=== PATIENT | male | born 1985 | race Two or more races ===

== ENCOUNTER 2019-12-17 21:12 | Emergency (ER) | payer OTHER, MEDICAID ==
[~2019-12-17] VITALS: Ht 170.2 cm; Wt 77.0 kg
[2019-12-17] MEDS ORDERED: IBUPROFEN 600MG TABLET PO ONE (22:30)
[2019-12-18 09:18] LABS: BASOPHILS % 0.6 % (0.0-2.0); EOSINOPHILS % 1.4 % (0.0-5.0); HEMATOCRIT. 40.8 % (42.0-52.0); HEMOGLOBIN. 13.8 g/dL (14.0-18.0); MEAN CORPUSCULAR HEMOGLOBIN 30.6 pg (28.0-32.0); MEAN CORPUSCULAR VOLUME 90.6 fL (80.0-94.0); MEAN PLATELET VOLUME 7.9 fl (7.4-10.4); MONOCYTES % 9.6 % (2.0-8.0); NEUTROPHILS % 79.4 % (40.0-76.0); PLATELET 276 x1000/uL (130-400); RED BLOOD CELL COUNT 4.51 mill/uL (4.7-6.1); RED CELL DISTRIBUTION WIDTH 13.3 % (11.6-14.6)
[2019-12-18 09:23] LABS: CHLORIDE 105 mEq/L (98-107)
[2019-12-18 09:26] LABS: ETHANOL BLOOD < 10 mg/dL
[2019-12-18 09:35] LABS: CLARITY URINE CLEAR (CLEAR); COLOR URINE YELLOW (YELLOW); KETONES URINE NEGATIVE (NEGATIVE); LEUKOCYTE ESTERASE URINE TRACE (NEGATIVE); NITRITE URINE NEGATIVE (NEGATIVE); OCCULT BLOOD URINE NEGATIVE (NEGATIVE); PH URINE 6.5 (4.5-8.0); PROTEIN URINE NEGATIVE (NEGATIVE); SPECIFIC GRAVITY URINE 1.022 (1.005-1.030)
[2019-12-18 09:54] LABS: *AMPHETAMINES SCREEN URINE NEGATIVE (NEGATIVE); *BARBITURATES SCREEN URINE NEGATIVE (NEGATIVE); *BENZODIAZEPINES SCREEN URINE NEGATIVE (NEGATIVE); CANNABINOID URINE SCREEN NEGATIVE (NEGATIVE); PHENCYCLIDINE URINE SCREEN NEGATIVE (NEGATIVE)
[2019-12-18 09:55] LABS: *COCAINE SCREEN URINE NEGATIVE (NEGATIVE); METHADONE URINE SCREEN NEGATIVE (NEGATIVE); OPIATES URINE SCREEN NEGATIVE (NEGATIVE)
[2019-12-18 14:57] VITALS: BP 132/81
== END 2019-12-18 14:59 | disposition home or self-care (01) ==
LOC: ER 21:12
DX: F23 Brief psychotic disorder (principal); M79.18 Myalgia, other site; M25.571 Pain in right ankle and joints of right foot; Z59.0 Homelessness; Z75.1 Person awaiting admission to adequate facility elsewhere; Z87.442 Personal history of urinary calculi
CPT/HCPCS: 36415; 73610; 80048; 80305; 80307; 80320; 80329; 81003; 85025; 99285; G0480

== ENCOUNTER 2019-12-23 01:36 | Emergency (ER) | payer MEDICARE, MEDICAID ==
[~2019-12-23] VITALS: Ht 167.6 cm; Wt 85.0 kg
[2019-12-23 02:02] VITALS: BP 128/58
[2019-12-23] MEDS ORDERED: NAPROXEN 250MG TABLET PO ONE (03:15)
[2019-12-23] MEDS ORDERED: BACITRACIN ZINC OINT UDPKT TOP ONE (03:15)
[2019-12-23] MEDS ORDERED: IBUPROFEN 600MG TABLET PO ONE (03:30)
== END 2019-12-23 03:58 | disposition home or self-care (01) ==
LOC: ER 01:36
DX: S90.822A Blister (nonthermal), left foot, initial encounter (principal); S90.821A Blister (nonthermal), right foot, initial encounter; S00.91XA Abrasion of unspecified part of head, initial encounter; S80.219A Abrasion, unspecified knee, initial encounter; X58.XXXA Exposure to other specified factors, initial encounter; Y93.89 Activity, other specified; Y92.89 Other specified places as the place of occurrence of the external cause; Y99.8 Other external cause status
CPT/HCPCS: 99283

== ENCOUNTER 2020-01-11 17:08 | Emergency (ER) | payer MEDICARE, MEDICAID ==
[~2020-01-11] VITALS: Ht 165.1 cm; Wt 65.0 kg
[2020-01-11 17:25] VITALS: BP 111/47
[2020-01-11] MEDS ORDERED: ACETAMINOPHEN 325MG TABLET PO ONE (19:30)
== END 2020-01-11 20:37 | disposition left against medical advice (07) ==
LOC: ER 17:08
DX: M79.671 Pain in right foot (principal); M79.672 Pain in left foot; Z59.0 Homelessness; Z87.19 Personal history of other diseases of the digestive system
CPT/HCPCS: 99281

== ENCOUNTER 2020-01-13 04:14 | Emergency (ER) | payer MEDICARE, MEDICAID ==
[~2020-01-13] VITALS: Ht 170.2 cm; Wt 70.4 kg
[2020-01-13 04:42] VITALS: BP 145/66
== END 2020-01-13 06:47 | disposition home or self-care (01) ==
LOC: ER 04:14
DX: M79.18 Myalgia, other site (principal); I10 Essential (primary) hypertension; Z87.19 Personal history of other diseases of the digestive system
CPT/HCPCS: 99281

== ENCOUNTER 2020-08-25 04:20 | Emergency (ER) | payer MEDICARE, MEDICAID ==
[~2020-08-25] VITALS: Ht 172.7 cm; Wt 67.0 kg
[2020-08-25] MEDS ORDERED: ONDANSETRON 4MG ODT PO STA (05:36)
[2020-08-25 07:02] LABS: CHLORIDE 102 mEq/L (98-107)
[2020-08-25 07:33] LABS: BASOPHILS % 0.5 % (0.0-2.0); HEMATOCRIT. 46.4 % (42.0-52.0); HEMOGLOBIN. 15.6 g/dL (14.0-18.0); LYMPHOCYTES % 27.3 % (20.0-50.0); MEAN CORPUSCULAR HEMOGLOBIN 30.5 pg (28.0-32.0); MEAN CORPUSCULAR VOLUME 90.8 fL (80.0-94.0); NEUTROPHILS % 62.2 % (40.0-76.0); PLATELET 276 x1000/uL (130-400); RED BLOOD CELL COUNT 5.11 mill/uL (4.7-6.1); RED CELL DISTRIBUTION WIDTH 13.2 % (11.6-14.6)
[2020-08-25] MEDS ORDERED: NALO4SPR BOTHNSTRLS (10:01)
[2020-08-25 11:40] VITALS: BP 147/80
== END 2020-08-25 11:42 | disposition home or self-care (01) ==
LOC: ER 04:20
DX: F19.239 Other psychoactive substance dependence with withdrawal, unspecified (principal); R42 Dizziness and giddiness; R11.10 Vomiting, unspecified; I10 Essential (primary) hypertension; Z59.0 Homelessness; Z87.442 Personal history of urinary calculi
CPT/HCPCS: 36415; 80048; 85025; 93005; 99284

== ENCOUNTER 2020-08-26 03:31 | Emergency (ER) | payer MEDICARE, MEDICAID ==
[~2020-08-26] VITALS: Ht 170.2 cm; Wt 76.0 kg
[~2020-08-26 03:31] MED LIST: NALO4SPR BOTHNSTRLS
[2020-08-26 05:26] VITALS: BP 129/76
[2020-08-26 05:27] LABS: BASOPHILS % 0.9 % (0.0-2.0); EOSINOPHILS % 1.1 % (0.0-5.0); HEMATOCRIT. 43.3 % (42.0-52.0); HEMOGLOBIN. 14.5 g/dL (14.0-18.0); LYMPHOCYTES % 22.9 % (20.0-50.0); MEAN CORPUSCULAR HEMOGLOBIN 29.9 pg (28.0-32.0); MEAN CORPUSCULAR VOLUME 89.4 fL (80.0-94.0); MEAN PLATELET VOLUME 7.8 fl (7.4-10.4); MONOCYTES % 7.5 % (2.0-8.0); NEUTROPHILS % 67.6 % (40.0-76.0); PLATELET 284 x1000/uL (130-400); RED BLOOD CELL COUNT 4.84 mill/uL (4.7-6.1); RED CELL DISTRIBUTION WIDTH 13.1 % (11.6-14.6)
[2020-08-26 05:30] LABS: CHLORIDE 107 mEq/L (98-107)
[2020-08-26 05:33] LABS: ETHANOL BLOOD < 10 mg/dL
== END 2020-08-26 08:56 | disposition home or self-care (01) ==
LOC: ER 03:31
DX: M79.18 Myalgia, other site (principal); I49.9 Cardiac arrhythmia, unspecified; Z59.0 Homelessness
CPT/HCPCS: 36415; 80048; 80076; 80307; 80320; 80329; 83735; 85025; 93005; 99284; G0480

== ENCOUNTER 2020-11-18 10:17 | Emergency (ER) | payer MEDICARE, MEDICAID ==
[~2020-11-18] VITALS: Ht 175.3 cm; Wt 73.0 kg
[2020-11-18] MEDS ORDERED: IBUP-2029 MT (12:35)
[2020-11-18] MEDS ORDERED: IBUPROFEN 600MG TABLET PO ONE (12:45)
[2020-11-18 12:47] VITALS: BP 134/72
== END 2020-11-18 12:54 | disposition home or self-care (01) ==
LOC: ER 10:17
DX: M79.672 Pain in left foot (principal); M79.671 Pain in right foot; Z59.0 Homelessness; Z90.49 Acquired absence of other specified parts of digestive tract
CPT/HCPCS: 73630; 99283

== ENCOUNTER 2021-08-27 17:09 | Emergency (ER) | payer MEDICARE, MEDICAID ==
[~2021-08-27] VITALS: Ht 167.6 cm; Wt 82.0 kg
[~2021-08-27 17:09] MED LIST changes: +IBUP-2029 MT
[2021-08-27 17:23] VITALS: BP 134/87
[2021-08-27] MEDS ORDERED: NAPR-1176 MT (19:34)
== END 2021-08-27 19:53 | disposition home or self-care (01) ==
LOC: ER 17:09
DX: M79.672 Pain in left foot (principal); M79.671 Pain in right foot; Z59.00 Homelessness unspecified
CPT/HCPCS: 99282

== ENCOUNTER 2021-09-16 23:28 | Emergency (ER) | payer MEDICARE, MEDICAID ==
[~2021-09-16] VITALS: Ht 167.6 cm; Wt 85.0 kg
[~2021-09-16 23:28] MED LIST changes: +NAPR-1176 MT
[2021-09-16 23:30] VITALS: BP 140/90
[2021-09-17] MEDS ORDERED: IBUPROFEN 400MG TABLET PO ONE
[2021-09-17] MEDS ORDERED: ACETAMINOPHEN 325MG TABLET PO ONE
== END 2021-09-17 01:55 | disposition home or self-care (01) ==
LOC: ER 23:56
DX: G89.29 Other chronic pain (principal); M25.562 Pain in left knee; M25.561 Pain in right knee; M79.18 Myalgia, other site; F31.9 Bipolar disorder, unspecified; F20.9 Schizophrenia, unspecified
CPT/HCPCS: 99283

== ENCOUNTER 2023-03-03 17:20 | Emergency (ER) | payer MEDICARE, MEDICAID ==
[~2023-03-03] VITALS: Ht 170.2 cm; Wt 60.0 kg
[2023-03-03 17:27] VITALS: BP 134/79; PULSE 109; RESP 16; TEMP 98.2; O2SAT 100
== END 2023-03-03 23:35 | disposition left against medical advice (07) ==
LOC: ER 17:20
DX: Z53.21 Procedure and treatment not carried out due to patient leaving prior to being seen by health care provider (principal)
CPT/HCPCS: 99281

== ENCOUNTER 2023-03-05 03:08 | Emergency (ER) | payer MEDICARE, MEDICAID ==
[~2023-03-05] VITALS: Ht 177.8 cm; Wt 66.0 kg
[2023-03-05 03:21] VITALS: BP 135/95; PULSE 115; RESP 20; TEMP 98.2; O2SAT 100
[2023-03-05 05:43] LABS: CLARITY URINE CLOUDY (CLEAR); COLOR URINE YELLOW (YELLOW); KETONES URINE NEGATIVE (NEGATIVE); LEUKOCYTE ESTERASE URINE NEGATIVE (NEGATIVE); NITRITE URINE NEGATIVE (NEGATIVE); OCCULT BLOOD URINE NEGATIVE (NEGATIVE); PH URINE 6.5 (4.5-8.0); PROTEIN URINE NEGATIVE (NEGATIVE); SPECIFIC GRAVITY URINE 1.018 (1.005-1.030)
[2023-03-05 05:46] LABS: *AMPHETAMINES SCREEN URINE NEGATIVE (NEGATIVE); *BARBITURATES SCREEN URINE NEGATIVE (NEGATIVE); *BENZODIAZEPINES SCREEN URINE NEGATIVE (NEGATIVE); *COCAINE SCREEN URINE NEGATIVE (NEGATIVE); CANNABINOID URINE SCREEN NEGATIVE (NEGATIVE); METHADONE URINE SCREEN NEGATIVE (NEGATIVE); OPIATES URINE SCREEN NEGATIVE (NEGATIVE); PHENCYCLIDINE URINE SCREEN NEGATIVE (NEGATIVE)
[2023-03-05 06:44] LABS: BASOPHILS % 1.2 % (0.0-2.0); EOSINOPHILS % 0.9 % (0.0-5.0); HEMATOCRIT. 40.6 % (42.0-52.0); HEMOGLOBIN. 13.8 g/dL (14.0-18.0); LYMPHOCYTES % 20.6 % (20.0-50.0); MEAN CORPUSCULAR HEMOGLOBIN 30.2 pg (28.0-32.0); MEAN CORPUSCULAR VOLUME 88.9 fL (80.0-94.0); MEAN PLATELET VOLUME 8.1 fl (7.4-10.4); MONOCYTES % 8.2 % (2.0-8.0); NEUTROPHILS % 69.1 % (40.0-76.0); PLATELET 370 x1000/uL (130-400); RED BLOOD CELL COUNT 4.57 mill/uL (4.7-6.1); RED CELL DISTRIBUTION WIDTH 16.3 % (11.6-14.6)
[2023-03-05 06:53] LABS: CHLORIDE 107 mEq/L (98-107)
[2023-03-05 06:59] LABS: ETHANOL BLOOD < 10 mg/dL (-10)
== END 2023-03-05 10:40 | disposition home or self-care (01) ==
LOC: ER 03:08
DX: R45.851 Suicidal ideations (principal)
CPT/HCPCS: 36415; 80048; 80305; 80307; 80320; 80329; 81003; 85025; 99283; G0480

== ENCOUNTER 2023-03-31 18:23 | Emergency (ER) | payer MEDICARE, MEDICAID ==
[~2023-03-31] VITALS: Ht 152.4 cm; Wt 74.0 kg
[2023-03-31 18:27] VITALS: O2SAT 99
[2023-03-31 19:22] LABS: BASOPHILS % 0.8 % (0.0-2.0); EOSINOPHILS % 0.9 % (0.0-5.0); HEMATOCRIT. 40.7 % (42.0-52.0); HEMOGLOBIN. 13.2 g/dL (14.0-18.0); MEAN CORPUSCULAR HEMOGLOBIN 29.4 pg (28.0-32.0); MEAN CORPUSCULAR HGB CONC 32.4 g/dL (31.0-37.0); MEAN CORPUSCULAR VOLUME 90.8 fL (80.0-94.0); MEAN PLATELET VOLUME 7.5 fl (7.4-10.4); MONOCYTES % 9.9 % (2.0-8.0); NEUTROPHILS % 65.4 % (40.0-76.0); PLATELET 435 x1000/uL (130-400); RED BLOOD CELL COUNT 4.49 mill/uL (4.7-6.1); RED CELL DISTRIBUTION WIDTH 14.8 % (11.6-14.6); WHITE BLOOD COUNT 11.7 x1000/uL (4.5-11.0)
[2023-03-31 19:30] LABS: CHLORIDE 107 mEq/L (98-107); INDEX HEMOLYSI 1 (1-3); INDEX ICTERIC 1 (1-4); INDEX LIPEMIC 1 (1-3); POTASSIUM 3.3 mEq/L (3.5-5.1); SODIUM 141 mEq/L (136-145)
[2023-03-31 19:39] LABS: ACETAMINOPHEN <2 ug/mL ug/mL (10-30); ALANINE AMINOTRANSFERASE 33 IU/L (13-61); ALBUMIN 3.8 g/dL (3.4-5.0); ASPARTATE AMINOTRANSFERASE 27 IU/L (15-37); BILIRUBIN TOTAL 0.2 mg/dL (0.1-1.0); CARBON DIOXIDE 28 mEq/L (21-32); CREATININE 0.9 mg/dL (0.6-1.3); ETHANOL BLOOD < 10 mg/dL (-10); GLUCOSE 65 mg/dL (70-105); PROTEIN TOTAL 7.5 g/dL (6.0-8.3); UREA NITROGEN BLOOD 20 mg/dL (7-21)
[2023-03-31 20:30] LABS: *AMPHETAMINES SCREEN URINE PRESUMTIVE POSITIVE (NEGATIVE); *BARBITURATES SCREEN URINE NEGATIVE (NEGATIVE); *BENZODIAZEPINES SCREEN URINE NEGATIVE (NEGATIVE); *COCAINE SCREEN URINE NEGATIVE (NEGATIVE); CANNABINOID URINE SCREEN NEGATIVE (NEGATIVE); ECSTASY MDMA SCREEN URINE NEGATIVE (NEGATIVE); METHADONE URINE SCREEN NEGATIVE (NEGATIVE); OPIATES URINE SCREEN NEGATIVE (NEGATIVE); PHENCYCLIDINE URINE SCREEN NEGATIVE (NEGATIVE)
[2023-03-31] MEDS ORDERED: POTASSIUM CHLORIDE 20MEQ TABLET SR PO ONE (20:30)
[2023-03-31] MEDS ORDERED: RISPERIDONE 1MG TABLET PO STA (22:37)
[2023-04-01 12:34] VITALS: BP 128/72; PULSE 78; RESP 19; TEMP 98.6
== END 2023-04-01 12:35 | disposition home or self-care (01) ==
LOC: ER 18:23
DX: R45.851 Suicidal ideations (principal); E10.649 Type 1 diabetes mellitus with hypoglycemia without coma; F32.9 Major depressive disorder, single episode, unspecified; I10 Essential (primary) hypertension; Z20.822 Contact with and (suspected) exposure to COVID-19
CPT/HCPCS: 80053; 80305; 80307; 80329; 80320; 82962; 85025; 36415; 99285; 87426; C9803; G0480

== ENCOUNTER 2023-05-28 03:06 | Emergency (ER) | payer MEDICARE, MEDICAID ==
[~2023-05-28] VITALS: Ht 170.2 cm; Wt 77.0 kg
[2023-05-28 03:25] VITALS: BP 128/86; PULSE 100; RESP 18; TEMP 97.7; O2SAT 99
[2023-05-29] MEDS ORDERED: IBUP-2028 MT (00:15)
== END 2023-05-28 05:26 | disposition left against medical advice (07) ==
LOC: ER 03:06
DX: Z53.21 Procedure and treatment not carried out due to patient leaving prior to being seen by health care provider (principal)
CPT/HCPCS: 99281

== ENCOUNTER 2023-05-28 22:22 | Emergency (ER) | payer MEDICARE, MEDICAID ==
[~2023-05-28] VITALS: Ht 172.7 cm; Wt 70.8 kg
[2023-05-28 22:33] VITALS: O2SAT 98
[2023-05-28] MEDS ORDERED: IBUPROFEN 400MG TABLET PO ONE (23:45)
[2023-05-29 00:13] VITALS: BP 120/81
[2023-05-29] MEDS ORDERED: IBUP-2028 MT (00:15)
[2023-05-29 00:50] VITALS: PULSE 92; RESP 16; TEMP 98.9
== END 2023-05-29 00:52 | disposition home or self-care (01) ==
LOC: ER 22:22
DX: R52 Pain, unspecified (principal); F20.9 Schizophrenia, unspecified; Z98.890 Other specified postprocedural states
CPT/HCPCS: 99282

== ENCOUNTER 2023-06-07 22:39 | Emergency (ER) | payer MEDICARE, MEDICAID ==
[~2023-06-07] VITALS: Ht 167.6 cm; Wt 67.0 kg
[~2023-06-07 22:39] MED LIST changes: +IBUP-2028 MT
[2023-06-07 23:03] VITALS: BP 129/77; PULSE 106; RESP 16; TEMP 97.6; O2SAT 99
== END 2023-06-08 02:56 | disposition left against medical advice (07) ==
LOC: ER 22:39
DX: R52 Pain, unspecified (principal); Z53.21 Procedure and treatment not carried out due to patient leaving prior to being seen by health care provider
CPT/HCPCS: 99281

== ENCOUNTER 2023-06-08 23:27 | Emergency (ER) | payer MEDICARE, MEDICAID ==
[~2023-06-08] VITALS: Ht 167.6 cm; Wt 68.6 kg
[2023-06-09 00:22] VITALS: BP 130/81; PULSE 94; RESP 15; TEMP 98.2; O2SAT 97
== END 2023-06-09 01:25 | disposition home or self-care (01) ==
LOC: ER 23:27
DX: K13.0 Diseases of lips (principal); Z88.6 Allergy status to analgesic agent; Z88.8 Allergy status to other drugs, medicaments and biological substances
CPT/HCPCS: 99281

== ENCOUNTER 2024-02-20 17:21 | Emergency (ER) | payer MEDICARE, MEDICAID ==
[~2024-02-20] VITALS: Ht 170.2 cm; Wt 60.0 kg
[2024-02-20 17:24] VITALS: O2SAT 98
[2024-02-20 18:12] LABS: CLARITY URINE CLEAR (CLEAR); COLOR URINE DARK YELLOW (YELLOW); GLUCOSE URINE NEGATIVE (NEGATIVE); KETONES URINE 1+ (NEGATIVE); LEUKOCYTE ESTERASE URINE NEGATIVE (NEGATIVE); NITRITE URINE NEGATIVE (NEGATIVE); OCCULT BLOOD URINE NEGATIVE (NEGATIVE); PROTEIN URINE NEGATIVE (NEGATIVE); SPECIFIC GRAVITY URINE 1.033 (1.005-1.030)
[2024-02-20 18:13] LABS: BASOPHILS % 1.2 % (0.0-2.0); EOSINOPHILS % 0.4 % (0.0-5.0); HEMATOCRIT. 36.4 % (42.0-52.0); HEMOGLOBIN. 11.7 g/dL (14.0-18.0); LYMPHOCYTES % 18.3 % (20.0-50.0); MEAN CORPUSCULAR HEMOGLOBIN 25.7 pg (28.0-32.0); MEAN CORPUSCULAR HGB CONC 32.1 g/dL (31.0-37.0); MEAN CORPUSCULAR VOLUME 80.1 fL (80.0-94.0); MEAN PLATELET VOLUME 7.3 fl (7.4-10.4); MONOCYTES % 9.6 % (2.0-8.0); NEUTROPHILS % 70.5 % (40.0-76.0); PLATELET 400 x1000/uL (130-400); RED BLOOD CELL COUNT 4.54 mill/uL (4.7-6.1); RED CELL DISTRIBUTION WIDTH 18.3 % (11.6-14.6)
[2024-02-20 18:18] LABS: CHLORIDE 107 mEq/L (98-107); POTASSIUM 3.7 mEq/L (3.5-5.1); SODIUM 142 mEq/L (136-145)
[2024-02-20 18:19] LABS: CALCIUM 9.3 mg/dL (8.7-10.4); CARBON DIOXIDE 28 mEq/L (21-32)
[2024-02-20 18:24] LABS: CREATININE 0.9 mg/dL (0.6-1.3); GLUCOSE 91 mg/dL (70-105); UREA NITROGEN BLOOD 17 mg/dL (9-23)
[2024-02-20 18:26] LABS: ALANINE AMINOTRANSFERASE 27 IU/L (10-49); ALBUMIN 4.3 g/dL (3.2-4.8); ASPARTATE AMINOTRANSFERASE 38 IU/L (<34)
[2024-02-20 18:30] LABS: ETHANOL BLOOD < 10 mg/dL (<10)
[2024-02-20 18:35] LABS: *AMPHETAMINES SCREEN URINE PRESUMPTIVE POSITIVE (NEGATIVE); *BARBITURATES SCREEN URINE NEGATIVE (NEGATIVE); *BENZODIAZEPINES SCREEN URINE NEGATIVE (NEGATIVE); *COCAINE SCREEN URINE NEGATIVE (NEGATIVE); CANNABINOID URINE SCREEN PRESUMPTIVE POSITIVE (NEGATIVE); ECSTASY MDMA SCREEN URINE NEGATIVE (NEGATIVE); METHADONE URINE SCREEN NEGATIVE (NEGATIVE); OPIATES URINE SCREEN NEGATIVE (NEGATIVE); PHENCYCLIDINE URINE SCREEN NEGATIVE (NEGATIVE)
[2024-02-21 08:45] VITALS: BP 108/55; PULSE 54; RESP 17; TEMP 97.9
== END 2024-02-21 11:15 | disposition home or self-care (01) ==
LOC: ER 17:21
DX: R45.851 Suicidal ideations (principal); F15.10 Other stimulant abuse, uncomplicated; F12.10 Cannabis abuse, uncomplicated; Z20.822 Contact with and (suspected) exposure to COVID-19
CPT/HCPCS: 36415; 80053; 80305; 80320; 81003; 85025; 87426; 99283; G0480

== ENCOUNTER 2024-03-11 14:08 | Emergency (ER) | payer MEDICARE, MEDICAID ==
[~2024-03-11] VITALS: Ht 162.6 cm; Wt 73.0 kg
[2024-03-11 14:16] VITALS: BP 108/84; TEMP 98.1; O2SAT 100
[2024-03-11 14:20] VITALS: PULSE 65; RESP 18
== END 2024-03-11 15:52 | disposition left against medical advice (07) ==
LOC: ER 14:08
DX: Z00.00 Encounter for general adult medical examination without abnormal findings (principal); F15.10 Other stimulant abuse, uncomplicated; F12.10 Cannabis abuse, uncomplicated; Z53.21 Procedure and treatment not carried out due to patient leaving prior to being seen by health care provider; Z88.6 Allergy status to analgesic agent; Z98.890 Other specified postprocedural states
CPT/HCPCS: 99281